=== PATIENT | male | born 1960 | race Caucasian/White ===

== ENCOUNTER 2021-11-10 11:46 | Emergency (ER) | payer MEDICARE ==
[~2021-11-10] VITALS: Ht 175.3 cm; Wt 86.0 kg
[~2021-11-10 11:46] MED LIST: LISINOPRIL20 MG PO; LOPRESSOR25 M1 PO
[2021-11-10] MEDS ORDERED: KEFLEX500 MG PO (12:32)
[2021-11-10] MEDS ORDERED: ERYTHROMYCIN O3.5 GM OS (12:32)
[2021-11-10 13:00] VITALS: BP 137/88
== END 2021-11-10 13:00 | disposition home or self-care (01) ==
LOC: ED 11:46
DX: H00.014 Hordeolum externum left upper eyelid (principal); I10 Essential (primary) hypertension; F17.200 Nicotine dependence, unspecified, uncomplicated